=== PATIENT | female | born 1980 | race Caucasian/White ===

== ENCOUNTER → 2018-04-21 | Outpatient (CLI) | payer OTHER ==
[2018-04-21 09:32] LABS: BASOPHIL % 0.7 % (0-2)
[2018-04-21 09:39] LABS: PLATELET COUNT 449 x10^3mcL (130-400)
[2018-04-21 10:18] LABS: ALBUMIN 3.8 g/dL (3.4-5.0); BILIRUBIN TOTAL 0.43 mg/dL (0.20-1.00); CALCIUM 8.3 mg/dL (8.5-10.1); CARBON DIOXIDE 26.3 mmol/L (21-32); CHOLESTEROL/HDL RATIO 3.8; CREATININE SERUM 1.1 mg/dL (0.6-1.0); TOTAL PROTEIN, SERUM 8.5 g/dL (6.4-8.2)
== END | disposition home or self-care (01) ==
LOC: LB 08:55
DX: Z76.89 Persons encountering health services in other specified circumstances (principal)

== ENCOUNTER → 2020-03-20 | Outpatient (CLI) | payer OTHER ==
[2020-03-20 07:45] LABS: BASOPHIL % 1.4 % (0-2); PLATELET COUNT 353 x10^3mcL (130-400); RED CELL DISTRIBUTION WIDTH 13.9 % (11.5-14.5)
[2020-03-20 08:32] LABS: ALBUMIN 3.7 g/dL (3.4-5.0); ALKALINE PHOSPHATASE 65 U/L (46-116); ALT/SGPT 38 U/L (14-59); AST/SGOT 18 U/L (15-37); BILIRUBIN TOTAL 0.72 mg/dL (0.20-1.00); C REACTIVE PROTEIN 0.6 mg/dL (<=0.9); CALCIUM 8.6 mg/dL (8.5-10.1); CARBON DIOXIDE 29.6 mmol/L (21-32); CHLORIDE SERUM 104 mmol/L (98-107); CHOLESTEROL 144 mg/dL (<200); CHOLESTEROL/HDL RATIO 2.6; GFR1 > 60 mL/min; GLUCOSE SERUM 90 mg/dL (74-106); HDL CHOLESTEROL 56 mg/dL (40-60); SODIUM SERUM 141 mmol/L (136-145); TOTAL PROTEIN, SERUM 7.8 g/dL (6.4-8.2); TRIGLYCERIDES 44 mg/dL (<150)
== END | disposition home or self-care (01) ==
LOC: LB 07:18
DX: Z00.00 Encounter for general adult medical examination without abnormal findings (principal)